=== PATIENT | male | born 1930 | race Caucasian/White ===

== ENCOUNTER 2017-06-24 08:01 | Day surgery (SDC) | payer OTHER ==
[2017-06-21 12:25] LABS: Absolute Lymphocytes (CBC) 0.9 K/uL (0.7-4.9); Absolute Monocytes 0.6 K/uL (0.1-1.3); Absolute Neutrophil 5.1 K/uL (1.8-8.0); Basophils % 0.4 % (0-1.3); Eosinophils % 1.9 % (0-4.4); Hematocrit 42.8 % (39.6-49.0); Lymphocytes % 13.1 % (15.3-44.8); MCH 30.4 pg (27.0-35.0); MPV 9.2 fL (7.6-11.3); Monocytes % 8.7 % (3.3-12.3)
[2017-06-21 12:27] LABS: Potassium 5.1 mEq/L (3.6-5.0)
--- NOTE | 2017-06-21 12:39 | EKG ---
Test Date: 2017-06-21 Test Time: 12:07:01 Elementary [employer] Teacher: SHEKHAR MEASUREMENT RESULTS: Intervals: Rate: 74 ND: 114 QRSD: 108 QT: 410 QTc: 455 [place]: P: 80 ND: 114 QRS: 65 T: 81 INTERPRETIVE STATEMENTS: Sinus rhythm with occasional premature ventricular complexes Incomplete right bundle branch block Borderline ECG Compared to ECG 12/12/2016 09:08:44 Incomplete right bundle-branch block now present Electronically Signed On 06-21-17 12:38:11 CDT by Chato Ortez
--- NOTE | 2017-06-21 12:49 | RAD REPORT ---
EXAM DESCRIPTION: Jesus Gutierrez (2 Views)06/21/2017 12:42 pm CLINICAL HISTORY: Hypertension/preop exam COMPARISON: 2016 FINDINGS: The lungs appear clear of acute infiltrate. The heart is mildly to moderately enlarged. A central venous catheter has its tip in the left brachiocephalic vein IMPRESSION: No acute abnormalities displayed
--- OUTSIDE RECORDS SUMMARY | 2017-06-24 08:04 | XMS REPORT | Clinical Summary ---
:1930 Author Organization [facility] Address [address] [place] [address] Care Team Providers Name Role Phone Terry Sanchez MD Primary Care Provider Allergies Active Allergy Reactions Severity Noted Date Comments Penicillins 06/14/2016 Current Medications Prescription Sig. Disp. Refills Start Date End Date Status finasteride TK 1 T PO QD 1 04/04/2016 Active (PROSCAR) 5 mg evening tablet KOMBIGLYZE XR TK 1 T PO QD. 0 06/07/2016 Active 5-1,000 mg tablet, evening ER multiphase 24 hr pantoprazole Take 40 mg by 06/14/2016 Active (PROTONIX) 40 MG EC mouth daily. tablet tamsulosin (FLOMAX) TK 1 C PO BID 6 05/22/2016 Active 0.4 mg capsule,extended release 24hr simvastatin (ZOCOR) TK 1 T PO QD 3 04/30/2016 Active 10 MG tablet evening repaglinide TK 2 TS PO 1 06/08/2016 Active (PRANDIN) 2 MG BID. tablet furosemide (LASIX) TK 1 T PO QD 0 05/07/2016 Active 20 mg tablet magnesium gluconate Take 500 mg by Active (MAGONATE) 27 mg mouth daily. (500 mg) tablet tablet OMEGA-3S/DHA/EPA/FIS Take 2 Active H OIL (OMEGA 3 ORAL) capsules by mouth daily. DULoxetine TK 1 C PO QD 2 11/19/2016 Active (CYMBALTA) 20 MG capsule lisinopril Take 1 tablet 90 tablet 3 01/29/2017 Active (PRINIVIL,ZESTRIL) (10 mg total) 10 mg tablet by mouth daily. senna (SENOKOT) 8.6 Take 1 tablet Active mg tablet by mouth 2 (two) times a day. cyanocobalamin 1000 Take 1,000 mcg Active MCG tablet by mouth daily. metoprolol tartrate Take 1 tablet 180 tablet 3 05/03/2017 Active (LOPRESSOR) 50 mg (50 mg total) 9 tablet by mouth 2 (two) times a day. apixaban (ELIQUIS) Take 1 tablet 180 tablet 3 05/14/2017 Active 2.5 mg tablet (2.5 mg total) by mouth 2 (two) times a day. traMADol (ULTRAM) 50 TK 1 T PO BID 3 05/02/2016 Discontinued mg tablet PRN 8 lisinopril TK 1 T PO QD 3 04/09/2016 Discontinued (PRINIVIL,ZESTRIL) 7 20 mg tablet insulin GLARGINE Inject under Discontinued (LANTUS) 100 unit/mL the skin 7 injection (vial) nightly. aspirin 325 MG Take 325 mg by Discontinued tablet mouth daily. 8 PSYLLIUM SEED, WITH Take by mouth. Discontinued SUGAR, (METAMUCIL, 8 SUGAR, ORAL) metoprolol tartrate Take 1 tablet 180 tablet 3 06/14/2016 Discontinued (LOPRESSOR) 50 mg (50 mg total) 8 tablet by mouth 2 (two) times a day. lisinopril Take 10 mg by Discontinued (PRINIVIL,ZESTRIL) mouth daily. 7 10 mg tablet Active Problems Problem Noted Date Rectal mass 04/16/2017 Paroxysmal atrial fibrillation 04/15/2017 Rectal cancer 11/27/2016 Essential hypertension 06/14/2016 Encounters Date Type Specialty Care Team Description 05/14/2017 Office Visit Cardiology Jose Enrique Padron Paroxysmal atrial fibrillation (Primary Dx); MD Saul Essential hypertension 05/03/2017 Orders Only Cardiology Zak Dempsey MA 05/02/2017 Office Visit General Surgery Jose Kowalski Rectal cancer MD Shadi (Primary Dx) 04/17/2017 Anesthesia Event General Surgery Gwyn Campa MD 04/17/2017 Procedure Pass General Surgery 04/17/2017 Procedure Pass General Surgery 04/17/2017 Surgery General Surgery Jose Kowalski FULL THICKNESS MD Shadi TRANSANAL EXCISION OF RECTAL CANCER 04/16/2017 Hospital Encounter General Surgery Jose Kowalski Rectal cancer - MD Shadi 04/18/2017 04/16/2017 Procedure Pass General Surgery 04/16/2017 Surgery General Surgery Jose Kowalski Canceled FULL MD Shadi THICKNESS TRANSANAL EXCISION OF RECTAL CANCER 04/15/2017 Office Visit Cardiology Jose Enrique Padron Essential hypertension ( Primary Dx); MD Saul Paroxysmal atrial fibrillation 04/12/2017 Anesthesia Event General Surgery Leslie Bermudez, GEOSCIENCES PROFESSOR 04/11/2017 Pre-Admit Testing Pre-Admission Testing Chandu Kowalskiic Preop examination (Primary Dx); Appointment MD Shadi HX: shuffle board operator anticoagulant use; Chronic atrial fibrillation; Type 2 diabetes mellitus with complication, unspecified shuffle board operator insulin use status 03/29/2017 Office Visit General Surgery Jose Kowalski Rectal cancer (Primary Dx); MD Shadi Fecal urgency 03/04/2017 Office Visit General Surgery KowalskiJose lopez Rectal cancer MD Shadi (Primary Dx) Teri Espitia NP-C 02/04/2017 Office Visit General Surgery KowalskiJose lopez Rectal cancer (Primary Dx); MD Shadi Rectal pain; 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 Refill Cardiology Juan Manuel Erwin Refjael Franks MA 12/14/2016 Telephone General Surgery Teri Espitia, CAREER TECHNOLOGY TEACHER-C 12/07/2016 Hospital Encounter Radiation Oncology Terry Sanchez MD 12/05/2016 Telephone General Surgery KowalskiJose MD 11/29/2016 Hospital Encounter Radiation Oncology Terry Sanchez MD 11/27/2016 Office Visit Cardiology Jose Enrique Padron Essential hypertension ( Primary Dx); MD Saul Rectal cancer 11/21/2016 Hospital Encounter Radiology Jose Kowalski Rectal cancer MD Shadi 11/21/2016 Office Visit General Surgery KowalskiJose lopez Rectal cancer (Primary Dx); MD Shadi Rectal pain; Fecal incontinence 11/21/2016 Procedure Pass Radiology 11/21/2016 Orders Only General Surgery Kowalski, Jose Rectal cancer MD Shadi (Primary Dx) 08/22/2016 Orders Only Cardiology Marilee Essential SHENA Carmichael hypertension (Primary Dx) 08/22/2016 Telephone Cardiology Marilee, Medication Problem SHENA Carmichael (holter placement) 08/17/2016 Refill Cardiovascular Amol Hunt MA 08/17/2016 Transcribe Orders Cardiology Jose Enrique Padron MD disease involving [place] coronary artery of [place] heart without angina pectoris (Primary Dx) 08/10/2016 Telephone Cardiology Anjel, surgery clearance. CORI Altamiranodelivery route driver surgery scheduled for August 16 after 06/23/2016 Social History Tobacco Use Types Packs/Day Years Used Date Never Smoker Smokeless Tobacco: Never Used Alcohol Use Drinks/Week oz/Week Comments No Sex Assigned at Date Recorded Not on file Last Filed Vital Signs Vital Sign Reading Time Taken Blood Pressure 144/65 05/14/2017 4:32 PM SOFTWARE SUPPORT TECHNICIAN Pulse 79 05/14/2017 4:32 PM SOFTWARE SUPPORT TECHNICIAN Temperature 35.7 C (96.3 F) 04/18/2017 12:03 PM SOFTWARE SUPPORT TECHNICIAN Respiratory Rate 18 04/18/2017 12:03 PM SOFTWARE SUPPORT TECHNICIAN Oxygen Saturation 95% 04/18/2017 12:03 PM SOFTWARE SUPPORT TECHNICIAN Inhaled Oxygen Concentration - - Weight 118 kg (261 lb) 05/14/2017 4:32 PM SOFTWARE SUPPORT TECHNICIAN Height 177.8 cm (5' 10") 05/14/2017 4:32 PM SOFTWARE SUPPORT TECHNICIAN Body Mass Index 37.45 05/14/2017 4:32 PM SOFTWARE SUPPORT TECHNICIAN Plan of Treatment Date Type Specialty Care Team Description 11/12/2017 Office Visit Cardiology Jose Enrique Padron MD [address] [address] [phone] Health Maintenance Due Date Last Done Comments FOOT EXAM 1942 OPHTHALMOLOGY EXAM 1942 ZOSTER VACCINE 1992 PNEUMOCOCCAL POLYSACCHARIDE VACCINE AGE 65 AND OVER 1997 PNEUMOCOCCAL-13 1997 INFLUENZA VACCINE 11/06/2016 Implants Implanted Type Area Trauma Doctor Device Expiration Date Model / Identifier Serial / Lot Knee Joint Knee Joint Implants Implants Procedures Procedure Name Priority Date/Time Associated Diagnosis Comments NM AN ELECTIVE Routine 04/17/2017 2:42 PM ENDOTRACHEAL AIRWAY SOFTWARE SUPPORT TECHNICIAN Procedure Note - Therese Daniel CRNA - 04/17/2017 2:39 PM SOFTWARE SUPPORT TECHNICIAN Airway Date/Time: 04/17/2017 2:23 PM Performed by: THERESE DANIEL Authorized by: JAIME RODRIGUEZ Location: OR Urgency: Elective Difficult Airway: No Anesthesiologist: JAIME RODRIGUEZ Resident/CHOCOLATE FINISHER OPERATOR/AA: THERESE DANIEL Performed by: resident/CHOCOLATE FINISHER OPERATOR/AA Preoxygenated with 100% O2: Yes (x 2 mins in reverse trendelenburg) C-spine Precautions Maintained Throughout: Yes Mask Ventilation: Easy mask (with 100mm) Final Airway Type: Endotracheal airway Final Endotracheal Airway: ETT Cuffed: Yes Technique Used: Direct laryngoscopy Insertion Site: Oral Blade Type: Peterson Laryngoscope Blade/Videolaryngoscope Blade Size: 2 ETT Size (mm): 8.0 Cuff at minimum occlusion pressure: Yes Measured from: Teeth ETT to Teeth (cm): 23 Placement Verified by: CO2 detection, direct visualization and equal breath sounds Laryngoscopic view: Grade I - full view of glottis Rapid Sequence Induction (RSI): No Modified RSI: No Number of Attempts at Approach: 1 Eyes taped at LOC and prior to any airway manipulation. Small lip laceration on upper lip, teeth intact as per pre-op. FULL THICKNESS TRANSANAL EXCISION OF RECTAL 04/17/2017 1:30 PM SOFTWARE SUPPORT TECHNICIAN Rectal cancer CANCER Case Notes CANDY CANE STIRRUPS Special Needs CANDY CANE STIRRUPS after 06/23/2016 Results POC glucose (04/18/2017 7:23 AM)Only the most recent of9 resultswithin the time period is included. Component Value Ref Range POC glucose 159 (H) 65 - 99 mg/dL Comment: [facility] Notified RN Meter ID: [id number] Orthopedic Designer: Zoran Santana Specimen Performing Laboratory [facility] DEPARTMENT OF PATHOLOGY AND GENOMIC MEDICINE [address] [place] [address] CBC with platelet and differential (04/18/2017 5:45 AM)Only the most recent of2 resultswithin the time period is included. Component Value Ref Range WBC 5.62 4.50 - 11.00 k/uL RBC 3.91 (L) 4.40 - 6.00 m/uL HGB 12.3 (L) 14.0 - 18.0 g/dL HCT 37.1 (L) 41.0 - 51.0 % MCV 94.9 82.0 - 100.0 fL MCH 31.5 27.0 - 34.0 pg MCHC 33.2 31.0 - 37.0 g/dL RDW - SD 46.4 37.0 - 55.0 fL MPV 10.9 8.8 - 13.2 fL Platelet count 164 150 - 400 k/uL Nucleated RBC 0.00 /100 WBC Neutrophils 82.0 (H) 39.0 - 69.0 % Lymphocytes 8.9 (L) 25.0 - 45.0 % Monocytes 8.5 0.0 - 10.0 % Eosinophils 0.0 0.0 - 5.0 % Basophils 0.4 0.0 - 1.0 % Immature granulocytes 0.2Comment: "Immature granulocytes" 0.0 - 1.0 % (promyelocytes, myelocytes, metamyelocytes) Specimen Performing Laboratory Blood [facility] DEPARTMENT OF PATHOLOGY AND [facility] MEDICINE [address] [place] [id number] Estimated GFR (04/18/2017 4:00 AM)Only the most recent of4 resultswithin the time period is included. Component Value Ref Range GFR Non Af Amer 71 mL/min/1.73 m2 GFR Af Amer 86 mL/min/1.73 m2 Comment: Chronic kidney disease: <60 mL/min/1.73m2 Kidney failure: <15 mL/min/1.73m2 The estimated GFR is calculated from the IDMS-traceable Modification of Diet in Renal Disease Equation. The accuracy of the calculation is poor when the creatinine is normal. Calculated values >90 mL/min/1.73m2 are not reported. This equation has not been validated in children (<18 years), women, the elderly (>70 years), or ethnic groups other than Caucasians and Americans. Specimen Performing Laboratory Plasma specimen [facility] DEPARTMENT OF PATHOLOGY AND [facility] MEDICINE [address] [place] [address] Phosphorus level (04/18/2017 4:00 AM) Component Value Ref Range Phosphorus 2.9 2.4 - 4.5 mg/dL Specimen Performing Laboratory Plasma specimen [facility] DEPARTMENT OF PATHOLOGY AND [address] [address] Magnesium level (04/18/2017 4:00 AM) Component Value Ref Range Magnesium 1.9 1.6 - 2.4 mg/dL Specimen Performing Laboratory Plasma specimen [facility] DEPARTMENT OF PATHOLOGY AND GENOMIC MEDICINE [address] [place] [address] Basic metabolic panel (04/18/2017 4:00 AM)Only the most recent of2 resultswithin the time period is included. Component Value Ref Range Sodium 141 135 - 148 mEq/L Potassium 4.6 3.5 - 5.0 mEq/L Chloride 102 98 - 112 mEq/L CO2 27 24 - 31 mEq/L Anion gap 12 7 - 15 mEq/L Comment: Starting from July , anion gap calculation no longer incorporates potassium. Please note the change. BUN 14 8 - 23 mg/dL Creatinine 1.0 0.7 - 1.2 mg/dL Glucose 132 (H) 65 - 99 mg/dL Calcium 8.7 (L) 8.8 - 10.2 mg/dL Specimen Performing Laboratory Plasma specimen [facility] DEPARTMENT OF PATHOLOGY AND GENOMIC MEDICINE [address] [place] [address] Surgical pathology request (04/17/2017 8:47 AM)Only the most recent of2 resultswithin the time period is included. Component Value Ref Range Surgical pathology report See link below for PDF Lab Report Result status This is Final Report to [id number] Specimen Performing Laboratory [facility]PART[facility] OF PATHOLOGY AND GENOMIC MEDICINE [address] [place] [address] ECG 12 lead (04/15/2017 2:45 PM) Component Value Ref Range Ventricular rate 62 Atrial rate 57 QRSD interval 108 QT interval 430 QTC interval 436 QRS axis 1 34 T wave axis 65 EKG impression Atrial fibrillation with premature ventricular or aberrantly conducted complexes-Abnormal ECG-In automated comparison with ECG of 11-APR-2017 15:25,-No significant change was found- Specimen Performing Laboratory [facility] [address] [place] [address] ECG Pre/Post Op (04/11/2017 3:25 PM) Component Value Ref Range Ventricular rate 77 Atrial rate 300 QRSD interval 102 QT interval 404 QTC interval 457 QRS axis 1 18 T wave axis 60 EKG impression ^^^ Poor data quality, interpretation may be adversely affected-Atrial fibrillation with premature ventricular or aberrantly conducted complexes-Abnormal ECG-No previous ECGs available- Specimen Performing Laboratory [facility] [address] [place] [address] Partial thromboplastin time, activated (04/11/2017 3:06 PM) Component Value Ref Range PTT 31.3 23.0 - 36.0 sec Comment: PTT therapeutic range for unfractionated heparin is 61.0-112.0 seconds which corresponds to Anti-Xa 0.3-0.7 U/ml. Specimen Performing Laboratory Blood [facility] DEPARTMENT OF PATHOLOGY AND [facility] MEDICINE [address] [place] [address] Prothrombin time with INR (04/11/2017 3:06 PM) Component Value Ref Range Prothrombin time 14.2 12.0 - 15.0 sec INR 1.1 Comment: The International Normalized Ratio (INR) is a therapeutic monitoring tool for patients who are stable on oral anticoagulant therapy. An INR of 2.0-3.0 is suggested for deep vein thrombosis/pulmonary embolism. Specimen Performing Laboratory Blood [facility] PATHOLOGY [address] [address] CBC hemogram (04/11/2017 3:06 PM) Component Value Ref Range WBC 6.40 4.50 - 11.00 k/uL RBC 4.20 (L) 4.40 - 6.00 m/uL HGB 13.2 (L) 14.0 - 18.0 g/dL HCT 40.2 (L) 41.0 - 51.0 % MCV 95.7 82.0 - 100.0 fL MCH 31.4 27.0 - 34.0 pg MCHC 32.8 31.0 - 37.0 g/dL RDW - SD 48.4 37.0 - 55.0 fL MPV 10.9 8.8 - 13.2 fL Platelet count 209 150 - 400 k/uL Nucleated RBC 0.00 /100 WBC Specimen Performing Laboratory Blood [facility] DEPARTMENT OF PATHOLOGY AND [address] [address] Type and screen (04/11/2017 3:06 PM) Component Value Ref Range ABO grouping O Rh type POS Antibody screen (gel) NEG Specimen Performing Laboratory Blood [facility] PATHOLOGY [address] [address] Hemoglobin A1c (04/11/2017 3:06 PM) Component Value Ref Range Hemoglobin A1C 6.4 (H) 4.0 - 5.6 % Comment: HbA1c cutoffs for diagnosing diabetes: 4.0% - 5.6%=normal 5.7% - 6.4%=increased risk for diabetes (prediabetes) >=6.5%=diabetes Goals for glycemic control (ADA 2016) < 7.0%Target for non adults with diabetes. More or less stringent targets may be appropriate for individual patients. <7.5% Target for Children and adolescents with type 1 diabetes. Specimen Performing Laboratory Blood [facility]PARTMENT OF PATHOLOGY AND GENOMIC MEDICINE [address] [place] [address] Comprehensive metabolic panel (04/11/2017 3:06 PM) Component Value Ref Range Sodium 142 135 - 148 mEq/L Potassium 4.4 3.5 - 5.0 mEq/L Chloride 98 98 - 112 mEq/L CO2 32 (H) 24 - 31 mEq/L Anion gap 12 7 - 15 mEq/L Comment: Starting from July , anion gap calculation no longer incorporates potassium. Please note the change. BUN 17 8 - 23 mg/dL Creatinine 1.2 0.7 - 1.2 mg/dL Glucose 95 65 - 99 mg/dL Calcium 9.7 8.8 - 10.2 mg/dL Protein 7.5 6.3 - 8.3 g/dL Comment: 4.6-7.0 g/dL 1 week 4.4-7.6 g/dL 7 months-1year5.1-7.3 g/dL 1-2 years5.6-7.5 g/dL >3 years6.0-8.0 g/dL 18-150 6.3-8.3 g/dL Albumin 3.7 3.5 - 5.0 g/dL A/G ratio 1.0 0.7 - 3.8 Alkaline phosphatase 121 40 - 129 U/L AST 12 10 - 50 U/L ALT 11 5 - 50 U/L Total bilirubin 0.6 0.0 - 1.2 mg/dL Specimen Performing Laboratory Plasma specimen [facility] DEPARTMENT OF PATHOLOGY AND GENOMIC MEDICINE [address] [place] [address] MRI Pelvis W Wo Contrast (11/21/2016 5:30 PM) Specimen Performing Laboratory [address] [address] Narrative EXAMINATION:MRI PELVIS W WO CONTRAST CLINICAL HISTORY:86 years 1930 C20 Malignant neoplasm of rectum, rectal cancer COMPARISON:None. TECHNIQUE: Multiplanar, multisequence MRI of the pelvis with and without contrast material with a rectal cancer protocol. High-resolution T2 images were obtained. IMPRESSION: Exam is limited by motion artifact. Patient was unable to receive glucagon secondary to elevated blood sugar. 1. There is a low rectal tumor. The inferior margin of the tumor is 4 cm from the anal verge and involves the very top of the anal sphincter complex. 2. The tumor extends 3 cm in length. It has a semiannular morphology with raised edges at 12o'clock and 6 o'clock. The central invasive portion is on the right at 9o'clock. 3. Evaluation for extension beyond the muscularis propria is limited by the low level of the tumor and paucity of mesorectal fat at this level. 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 This abuts the inferior aspect of the mesorectal fascia on the right. 4. There are no suspicious mesorectal or extramesorectal lymph nodes. 5. No evidence of extramural vascular invasion. 6. Other:Sigmoid diverticulosis. Bladder is distended. There is no pelvic ascites. No focal marrow replacing abnormality. Procedure Note Hm Interface, Radiology Results Incoming - 11/22/2016 10:42 AM CDT EXAMINATION: MRI PELVIS W WO CONTRAST CLINICAL HISTORY: 86 years 1930 C20 Malignant neoplasm of rectum, rectal cancer COMPARISON: None. TECHNIQUE: Multiplanar, multisequence MRI of the pelvis with and without contrast material with a rectal cancer protocol. High-resolution T2 images were obtained. IMPRESSION: Exam is limited by motion artifact. Patient was unable to receive glucagon secondary to elevated blood sugar. 1. There is a low rectal tumor. The inferior margin of the tumor is 4 cm from the anal verge and involves the very top of the anal sphincter complex. 2. The tumor extends 3 cm in length. It has a semiannular morphology with raised edges at 12 o'clock and 6 o'clock. The central invasive portion is on the right at 9 o'clock. 3. Evaluation for extension beyond the muscularis propria is limited by the low level of the tumor and paucity of mesorectal fat at this level. There is suggestion of some tumor extension beyond the muscularis propria on the right at 9 o'clock (series 12, image 10 and series 6, image 17). 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 This abuts the inferior aspect of the mesorectal fascia on the right. 4. There are no suspicious mesorectal or extramesorectal lymph nodes. 5. No evidence of extramural vascular invasion. 6. Other: Sigmoid diverticulosis. Bladder is distended. There is no pelvic ascites. No focal marrow replacing abnormality. Creatinine level (11/21/2016 3:34 PM) Component Value Ref Range Creatinine 1.3 (H)Comment: Testing performed on the ISTAT instrument 0.7 - 1.2 mg/dL by CORI Aleman [id number] Specimen Performing Laboratory Plasma specimen [facility] DEPARTMENT OF PATHOLOGY AND GENOMIC MEDICINE [address] [place] [address] after 06/23/2016 Insurance Payer Benefit Plan / Group Subscriber ID Type Phone Address MEDICARE MEDICARE PART A AND B xxxxxxxxxx Medicare [place], [place] COMMERCIAL MISC MISC COMMERCIAL xxxxxxxxxx Commercial Home: [id number] [facility] [phone] [address]
[2017-06-24] MEDS ORDERED: NA CHLORIDE 0.9% 1,000 ML ONE (09:15)
[2017-06-24] MEDS ORDERED: CIPROFLOXACIN 400mg IV 400 MG/200 ML BAG IV ONE (09:16)
[2017-06-24] MEDS ORDERED: PROPOFOL 200 MG/20 ML VIAL IV ONE (10:24)
[2017-06-24] MEDS ORDERED: FENTANYL CITR 100 MCG/2 ML ONE (10:25)
[2017-06-24] MEDS ORDERED: LIDOCAINE 1% MPF 5 ML VIAL ONE (10:25)
--- NOTE | 2017-06-24 10:50 | P.BOP ---
Preoperative diagnosis: rectal cancer Postoperative diagnosis: same Primary procedure: Removal of portacath Estimated blood loss: <5cc Specimen: intact portacath Findings: as a gela Anesthesia: MAC Complications: None Transferred to: Recovery Room Condition: Good
--- NOTE | 2017-06-24 12:49 | OP ---
Date of Procedure: 06/24/2017 Surgeon: Dashawn Sheffield MD Preoperative Diagnosis: Rectal cancer. Postoperative Diagnosis: Rectal cancer. Procedure: Removal of Port-A-Cath. Finding: As above. Specimen: Intact Port-A-Cath. Anesthesia: MAC plus local. Indications: This is the case of an 86-year-old patient, who just finished chemotherapy for his rect al cancer and also surgical treatment. The patient is doing well. He wants Port-A-Cath removed. Th e benefits, alternatives, and risks of that were fully explained which include but are not limited to infection, bleeding, damage to adjacent structures, anesthesia complication, DVTs, pulmonary emboli, ME, or even . He also understands this may not relieve any symptoms. He might need more than one surgical intervention. He understood. Signed a consent. Description Of Procedure: The patient was brought to the operating room, placed in supine position. Anesthesia was done without complication. A time-out was called. The left chest was prepped and dr aped in a sterile fashion. Local anesthesia was applied over the area followed by sharp incision. P ort-A-Cath was found secure. The attachments were carefully released and then I proceeded to remove the Port-A-Cath and applying pressure on the insertion site for 15 minutes. The Port-A-Cath looked i ntact and sent for identification. The area was irrigated. 3-0 chromic was used to close subcutaneo us incision and then also to approximate the skin in subcuticular fashion with Steri-Strips on top. Sponge count and instrument counts were correct. The patient tolerated the procedure well. The jesus ent was sent to recovery in stable condition. DISCHARGE SUMMARY Diagnosis: Rectal cancer. Procedure: Removal of Port-A-Cath. Disposition: Home. Activity: As tolerated. No heavy lifting. Followup: Follow up in my office in 1 week. Call for appointment at [phone]. Discharge Instructions: Keep area dry for 48 hours, then may shower. Keep Steri-Strip intact. Medications: Include Tylenol No. 3 q.4 hours p.r.n. pain. HM/MODL Voice ID: [id number] Report ID: [id number]
== END 2017-06-24 11:50 | disposition home or self-care (01) ==
LOC: DS 08:01
PROVIDERS: ATTEND Surgery
PROC: 0JPT0WZ Removal of Totally Implantable Vascular Access Device from Trunk Subcutaneous Tissue and Fascia, Open Approach (ICD-10-PCS; principal; 2017-06-24 10:15)
DX: Z45.2 Encounter for adjustment and management of vascular access device (principal); C20 Malignant neoplasm of rectum; E11.9 Type 2 diabetes mellitus without complications; I10 Essential (primary) hypertension; K21.9 Gastro-esophageal reflux disease without esophagitis; Z88.0 Allergy status to penicillin; Z80.7 Family history of other malignant neoplasms of lymphoid, hematopoietic and related tissues; Z83.79 Family history of other diseases of the digestive system
CPT/HCPCS: 36415; 36590; 71046; 80048; 82962; 85025; 88300; 93005; J0744; J3010; J7030